=== PATIENT | female | born 1950 | race Caucasian/White ===

== ENCOUNTER 2025-08-24 18:29 | Emergency (ER) | payer MEDICARE, SELFPAY ==
--- NOTE | 2025-08-24 18:45 | ED_ITS ---
HPI - Female Genitourinary General Chief complaint: Urogenital-Female Stated complaint: Uti Symptoms Time Seen by Provider: 08/24/25 18:45 Source: patient Mode of arrival: ambulatory Limitations: no limitations History of Present Illness HPI Narrative: Naina is a 74-year-old female patient presenting to the clinic today with complaints of possible UTI x1 week. She reports she was recently treated for a urinary tract infection 1 month ago and was prescribed Macrodantin for 7 days- only took 6 pills and stop taking the medication because she felt better Related Data Home Medications ?Medication ?Instructions ?Recorded ?Confirmed ?Last Taken ?Type atorvastatin 10 mg tablet mg 08/24/25 Unknown History hydrochlorothiazide 25 mg tablet mg 08/24/25 Unknown History lisinopril 40 mg tablet 40 mg PO DAILY 08/24/2508/14 Unknown History Allergies Allergy/AdvReac Type Severity Reaction Status Date / Time Penicillins Allergy Unknown Unknown Verified 08/24/25 18:43 Review of Systems Review of Systems: Pertinent positives per HPI. Patient denies any fever, chills, rash, headache, visual changes, dizziness, cough, runny nose, sore throat, shortness of breath, chest pain, palpitations, nausea, vomiting, diarrhea, constipation, abdominal pain, or any urinary issues. [facility] Past Medical History Medical History Hyperlipidemia Hypertension Comments At the time of my signature, I reviewed and agree with the nursing past medical, surgical, social, and family history. There is no relevant family history pertinent to the patient complaint. Exam Narrative: General: Well-developed, well nourished, in no apparent distress. Head: Normocephalic, atraumatic. Cardio: Regular rate and rhythm, s1 and s2 normal, no murmur appreciated. Resp: Clear to auscultation bilaterally, no rhonchi, rales, wheezing or rubs. Abdomen: Soft, pliable, bowel sounds present in all quadrants, non-tender to palpation, no organomegly, no CVAT tenderness. Course Course Level of Care: Express Care Visit Vital Signs Vital signs: Vital Signs Temperature 36.4 C L 08/24/25 18:50 Pulse Rate 73 08/24/25 18:50 Respiratory Rate 16 08/24/25 18:50 Blood Pressure 155/83 H 08/24/25 18:50 Pulse Oximetry 97 08/24/25 18:50 Temperature 36.4 C L 08/24/25 18:50 Pulse Rate 73 08/24/25 18:50 Respiratory Rate 16 08/24/25 18:50 Blood Pressure 155/83 H 08/24/25 18:50 Pulse Oximetry 97 08/24/25 18:50 MDM MDM Narrative Medical decision making narrative: At the time of visit patient is resting comfortably on the exam table. Patient appears to be nontoxic. Complaints of possible UTI x1 week. She reports she was recently treated for a urinary tract infection 1 month ago and was prescribed Macrodantin for 7 days-only took 6 pills and stop taking the medication because she felt better. On exam patient has soft, pliable, nondistended abdomen, no abdominal tenderness to palpation, no CVAT tenderness, no organomegaly, bowel sounds present all 4 quadrants. Urine dip ordered. Labs: Urine dip positive for trace leukocytes. We will send urine for culture. Plan: Due to patient's symptoms and trace of leukocytes will send in prescription for 3 day course of ciprofloxacin. Instructed patient to take medication until it is gone. Supportive measures were discussed with the patient and they voiced understanding discharge instructions and agrees to treatment plan. Return precautions reviewed Differential Diagnosis Differential Diagnosis: Differential diagnostic considerations for female urogenital issues include urinary tract infection, bacterial vaginosis, cervicitis, ovarian cyst, vaginitis, STI exposure, ovarian torsion, ectopic , cyst of Bartholin?s gland, cystitis, dysmenorrhea. Discharge Plan Discharge Clinical Impression: Urinary tract infection Qualifiers: Urinary tract infection type: acute cystitis Hematuria presence: without hematuria Qualified Code(s): N30.00 - Acute cystitis without hematuria Patient Disposition: Home Condition: Stable Instructions: Antibiotic Form, Urinary Tract Infection in Older Adults (ED) Additional Instructions: Urinalysis shows trace of leukocytes. We will send urine for culture. Take ciprofloxacin as prescribed-take all the medication until it is gone Increase fluids and stay well hydrated Wipe front to back. May use wet wipes. Avoid tub baths If sexually active- pee before and after intercourse. Wear cotton panties Avoid tight clothing up against the genitals Follow up with your PCP in 1 week if symptoms persist. Patient Language: [place] Prescriptions: New ciprofloxacin HCl [Cipro] 500 mg tablet 500 mg PO Q12H 3 Days Qty: 6 0RF No Action atorvastatin 10 mg tablet hydrochlorothiazide 25 mg tablet lisinopril 40 mg tablet 40 mg PO DAILY hydrocodone-acetaminophen 5-325 mg tablet 1 tablet PO Q6H PRN (Reason: pain) Qty: 20 0RF oxycodone 5 mg tablet 5 mg PO Q6H PRN (Reason: pain) Qty: 20 0RF ondansetron 4 mg tablet,disintegrating 4 mg PO Q6H PRN (Reason: nausea and vomiting) Qty: 10 0RF Follow-up/Referrals: Raheem,Gideon Guajardo MD [Primary Care Provider, Unknown] Time of Disposition: 18:52 Quality NIHSS Nursing Documentation ED NIHSS nursing documentation: reviewed/agree
[2025-08-24 18:50] VITALS: BP 155/83; PULSE 73; RESP 16; TEMP 36.4; O2SAT 97
[2025-08-24 19:05] LABS: EDUAAPPEAR Clear; EDUABILI Negative (Negative); EDUABLOOD Negative (Negative); EDUACOLOR1 Yellow; EDUAGLUCOSE Negative (Negative); EDUAKETONE Negative (Negative); EDUALEUKO Trace (Negative); EDUANITRATE Negative (Negative); EDUAPH 7.0; EDUAPROTEIN Negative (Negative); EDUASPGRAVITY 1.015; EDUAUROBILI 0.2
== END 2025-08-24 19:00 | disposition home or self-care (01) ==
PROVIDERS: Emergency Provider Nurse Practitioner Family; PCP Internal Medicine
DX: N30.00 Acute cystitis without hematuria (principal); I10 Essential (primary) hypertension; E78.5 Hyperlipidemia, unspecified
CPT/HCPCS: 81003; 87086; 99213; G0463